=== PATIENT | female | born 1945 | race Two or more races ===

== ENCOUNTER 2017-07-20 11:21 | Day surgery (SDC) | payer MEDICARE, OTHER ==
[2017-07-17 18:24] VITALS: BMI 29.9
[2017-07-20] MEDS ORDERED: LIDOCAINE HCL/PF 2% SDV 5ML VIAL ONE (16:52)
[2017-07-20] MEDS ORDERED: PROPOFOL 20 ML ONE (16:53)
[2017-07-20] MEDS ORDERED: SUCCINYLCHOLINE CHLORIDE 200 MG/10 ML VIAL ONE (16:53)
[2017-07-20] MEDS ORDERED: CEFTRIAXONE IN IS-OSM DEXTROSE 2 GM/50 ML BAG IVPB ONE (17:00)
[2017-07-20] MEDS ORDERED: cefTRIAXone 2 GM/100 ML BAG (PRE-DOCKED) IVPB ONE (17:01)
[2017-07-20] MEDS ORDERED: DEXAMETHASONE SOD PHOSPHATE 4 MG/1 ML VIAL ONE (17:10)
[2017-07-20] MEDS ORDERED: KETOROLAC TROMETHAMINE 30 MG/1 ML VIAL ONE (17:10)
[2017-07-20] MEDS ORDERED: IOHEXOL 300 MG/ML INFUS..BTL IV ONE ×2 (17:27)
--- NOTE | 2017-07-20 17:55 | OP ---
Operative Note - Note: Operative Date: 07/20/17 Pre-Operative Diagnosis: left hydronephrosis with ureteral stone Operation: cystoscopy/left retrograde pyelogram/left ureteroscopic stone manipulation/left ureteral stent placement Findings: jaki grade proximal ureteral obstruction with 8 mm stone with pyonephrosis Post-Operative Diagnosis: Same as Pre-op (same with pyonephrosis) Surgeon: Michael David Anesthesia: General Drains & Tubes with Location: 6 fr/24 cm left ureteral stent
[2017-07-20] MEDS ORDERED: oxyCODONE HCL 5 MG TABLET PO PRN (18:00)
[2017-07-20] MEDS ORDERED: ELECTROLYTE-148 SOLN 1,000 ML IV SCH (18:00)
[2017-07-20] MEDS ORDERED: PROMETHAZINE HCL 25 MG/1 ML VIAL IVPUSH PRN (18:00)
[2017-07-20] MEDS ORDERED: ONDANSETRON 4 MG/2 ML VIAL IVPUSH PRN (18:00)
[2017-07-20 19:03] VITALS: BP 131/76; PULSE 70
[2017-07-20 19:29] VITALS: TEMP 98
--- NOTE | 2017-07-20 21:13 | OP ---
DATE OF OPERATION: 07/20/2017 PREOPERATIVE DIAGNOSIS: Left hydronephrosis with ureteral stone. POSTOPERATIVE DIAGNOSIS: Left hydronephrosis with ureteral stone, with left pyonephrosis. PROCEDURE: Cystoscopy, left retrograde pyelogram, left ureteroscopic stone manipulation, left ureteral stent placement. ATTENDING: Michael Ruelas MD ANESTHESIA: General. DESCRIPTION OF OPERATION: Patient was brought in the operating room, placed in supine position on the operating room table. General anesthesia was administered. The patient was then prepped and draped in the usual sterile manner. The patient had recent cultures that showed a urinary tract infection that was sensitive to ceftriaxone. The patient was given 2 g of ceftriaxone preoperatively. With the antibiotics given, the cystoscopy was performed. The cystoscopy showed no evidence of bladder lesions or stones. A retrograde pyelogram utilizing an open-ended catheter was performed, which showed an upper ureteral stone. A hydronephrosis was noted. A wire was passed proximally. At this point, ureteroscopy was performed, and a stone was seen just distal to the ureteropelvic junction. The stone was pushed into the kidney. Pyonephrosis was noted. A sample was taken and sent for urine culture. Because of pyonephrosis, it was decided to leave a stent in the patient. The patient had a 6-Kinyarwanda 24-cm left ureteral stent placed utilizing the Seldinger technique. No complications were noted. The patient tolerated the procedure very well. Nicolas [id number]
== END 2017-07-20 19:07 | disposition home or self-care (01) ==
LOC: JASU-SURG 11:21
PROVIDERS: ATTEND Urology
PROC: 0TC78ZZ Extirpation of Matter from Left Ureter, Via Natural or Artificial Opening Endoscopic (ICD-10-PCS; principal; 2017-07-20 12:00)
PROC: 0T778DZ Dilation of Left Ureter with Intraluminal Device, Via Natural or Artificial Opening Endoscopic (ICD-10-PCS; 2017-07-20 12:00)
DX: N13.2 Hydronephrosis with renal and ureteral calculous obstruction (principal)
CPT/HCPCS: 76000-TC-FY; 82962; 87086; 87186

== ENCOUNTER 2017-08-03 08:27 | Day surgery (SDC) | payer MEDICARE, OTHER ==
[2017-07-31 12:11] VITALS: BMI 30.7
[2017-08-03 08:49] VITALS: TEMP 98.2
[2017-08-03] MEDS ORDERED: CEFTRIAXONE 1 GM/50 ML PREMIX IVPB ONE (09:53)
--- NOTE | 2017-08-03 11:26 | OP ---
Operative Note - Note: Operative Date: 08/03/17 Pre-Operative Diagnosis: left renal stone Operation: left eswl Post-Operative Diagnosis: Same as Pre-op Surgeon: Mcihael David Anesthesia: Fractional
[2017-08-03 13:06] VITALS: BP 123/60; PULSE 68
--- NOTE | 2017-08-04 09:15 | OP ---
DATE OF OPERATION: 08/03/2017 PREOPERATIVE DIAGNOSIS: Left renal stone. POSTOPERATIVE DIAGNOSIS: Left renal stone. PROCEDURE: Left extracorporeal shock wave lithotripsy. ATTENDING: Ruthann Nick MD ANESTHESIA: Fractional. OPERATION: The patient was brought into the operating room, placed in supine position on the operating room table. Ultrasonography and fluoroscopy were performed. A 10-mm left mid-pole stone was identified. Anesthesia was administered as were preoperative antibiotics. The patient then underwent a left extracorporeal shock wave lithotripsy. A 10-mm left stone was identified. Lithotripsy was delivered with 2500 impulses at 20 joules of power. Excellent fragmentation was noted. No complications were noted. The patient tolerated the procedure very well. RUTHANN NICK M.D. /[id number]
== END 2017-08-03 13:07 | disposition home or self-care (01) ==
LOC: JASU-SURG 08:27
PROVIDERS: ATTEND Urology
PROC: 0TF4XZZ Fragmentation in Left Kidney Pelvis, External Approach (ICD-10-PCS; principal; 2017-08-03 09:30)
DX: N20.0 Calculus of kidney (principal)
CPT/HCPCS: 82962

== ENCOUNTER 2020-04-23 05:12 | Day surgery (SDC) | payer MEDICARE, OTHER ==
[2020-03-09 13:02] VITALS: BMI 30.7
[2020-04-23 17:10] VITALS: BP 160/74; PULSE 68; TEMP 97
== END 2020-04-23 17:00 | disposition home or self-care (01) ==
LOC: JASU-SURG 05:12
PROVIDERS: ATTEND Urology
PROC: 0TF4XZZ Fragmentation in Left Kidney Pelvis, External Approach (ICD-10-PCS; principal; 2020-04-23 13:30)
DX: N20.0 Calculus of kidney (principal)
CPT/HCPCS: 82962

== ENCOUNTER 2020-07-12 17:04 | Emergency (ER) | payer MEDICARE, OTHER ==
[2020-07-12 17:31] VITALS: BP 175/78; PULSE 85; TEMP 97; BMI 34.7
[2020-07-12] MEDS ORDERED: ACETAMINOPHEN 500 MG TABLET (FP) PO ONE (18:00)
[2020-07-12] MEDS ORDERED: ACETAMINOPHEN 500 MG TABLET (FP) ONE (18:05)
[2020-07-12 18:57] LABS: EPI CELLS 29 /uL (0-25.1); HYALINE CASTS 3 /uL (0-3.1); URINE APPEARANCE CLEAR; URINE BACTERIA 447 /uL (0-1359); URINE BILIRUBIN NEGATIVE (NEGATIVE); URINE COLOR YELLOW; URINE GLUCOSE (UA) TRACE (NEGATIVE); URINE KETONE TRACE (NEGATIVE); URINE LEUK ESTERASE TRACE (NEGATIVE); URINE NITRITE NEGATIVE (NEGATIVE); URINE PROTEIN 1+ (NEGATIVE); URINE RBC 18 /uL (0-23.9); URINE WBC 39 /uL (0-25.8)
== END 2020-07-12 21:30 | disposition home or self-care (01) ==
LOC: JER 17:04
DX: R10.9 Unspecified abdominal pain (principal)
CPT/HCPCS: 74176-TC; 81003; 87086; 99284-25

== ENCOUNTER 2020-07-14 12:03 | Emergency (ER) | payer MEDICARE, OTHER | END 2020-07-14 18:57 | disposition home or self-care (01) | LOC: JVIRT 12:03 | DX: U07.1 COVID-19 (principal) | CPT/HCPCS: C9803; G2251-GT; Q3014-GT; U0003 ==

== ENCOUNTER 2020-10-03 04:43 | Day surgery (SDC) | payer MEDICARE, OTHER ==
[2020-10-01 14:22] VITALS: BMI 33.8
[~2020-10-03 04:43] MED LIST: ACETAMINOPHEN 325 MG TABLET (FP) PO PRN; BSS (NA/CA/MG/K) BALANCED SALT SOLUTION OPHTH SOLN 15 ML BOTTLE OD ONE; CHONDROITIN SU A/HYALUR SOD 1 KIT IO ONE; EPINEPHrine/PF 1 MG/1 ML (1:1,000) AMPULE SQ ONE; LIDOCAINE HCL 1% PRESERVATIVE FREE - 30ML VIAL IO ONE; POVIDONE-IODINE 5% OPHTHALMIC PREP 30 ML SOLUTION OD ONE; TETRACAINE 0.5% OPHTH SOLN 2 ML BOTTLE OD ONE
[2020-10-03] MEDS ORDERED: EPINEPHrine/PF 1 MG/1 ML (1:1,000) AMPULE ONE (07:12)
[2020-10-03] MEDS ORDERED: LIDOCAINE HCL/PF 1% SDV 5ML VIAL ONE (07:12)
[2020-10-03] MEDS ORDERED: POVIDONE-IODINE 5% OPHTHALMIC PREP 30 ML SOLUTION ONE (07:12)
[2020-10-03] MEDS ORDERED: TETRACAINE 0.5% OPHTH SOLN 2 ML BOTTLE ONE (07:12)
[2020-10-03] MEDS ORDERED: CHONDROITIN SU A/HYALUR SOD 1 KIT ONE (07:12)
[2020-10-03] MEDS ORDERED: TRYPAN BLUE 0.5 ML DISP.SYRIN ONE (07:13)
[2020-10-03] MEDS ORDERED: TROPICAMIDE 1% OPHTH SOLN 15 ML BOTTLE ONE (07:17)
[2020-10-03] MEDS ORDERED: CYCLOPENTOLATE HCL 1% OPHTH SOLN 2 ML BOTTLE ONE (07:18)
[2020-10-03] MEDS ORDERED: OFLOXACIN 0.3% OPHTHALMIC SOLUTION 5 ML BOTTLE ONE (07:18)
[2020-10-03] MEDS ORDERED: KETOROLAC TROMETHAMINE 0.5% EYE DROP 1 DROP DROPS ONE (07:18)
[2020-10-03] MEDS: PHENYLEPHRINE 2.5% OPHTH SOLN 15 ML BOTTLE OP SCH ×3 (07:55→08:05)
[2020-10-03] MEDS: TROPICAMIDE 1% OPHTH SOLN 15 ML BOTTLE OP SCH ×3 (07:55→08:05)
[2020-10-03] MEDS: CYCLOPENTOLATE HCL 1% OPHTH SOLN 2 ML BOTTLE OP SCH ×3 (07:55→08:05)
[2020-10-03] MEDS: KETOROLAC TROMETHAMINE 0.5% EYE DROP 1 DROP DROPS OP SCH ×3 (07:55→08:05)
[2020-10-03] MEDS: OFLOXACIN 0.3% OPHTHALMIC SOLUTION 5 ML BOTTLE OP SCH ×3 (07:55→08:05)
[2020-10-03] MEDS ORDERED: TETRACAINE 0.5% OPHTH SOLN 2 ML BOTTLE TP ONE (09:25)
[2020-10-03] MEDS ORDERED: POVIDONE-IODINE 5% OPHTHALMIC PREP 30 ML SOLUTION OD ONE (09:27)
[2020-10-03] MEDS ORDERED: BSS (NA/CA/MG/K) BALANCED SALT SOLUTION OPHTH SOLN 15 ML BOTTLE OD ONE (09:32)
[2020-10-03] MEDS ORDERED: CHONDROITIN SU A/HYALUR SOD 1 KIT IO ONE (09:33)
[2020-10-03] MEDS ORDERED: LIDOCAINE HCL 1% PRESERVATIVE FREE - 30ML VIAL IO ONE (09:33)
[2020-10-03] MEDS ORDERED: EPINEPHrine/PF 1 MG/1 ML (1:1,000) AMPULE SQ ONE (09:40)
[2020-10-03 12:58] VITALS: BP 153/68; PULSE 71; TEMP 97.7
== END 2020-10-03 10:55 | disposition home or self-care (01) ==
LOC: JASU-SURG 04:43
PROVIDERS: ATTEND Ophthalmology
PROC: 08RJ3JZ Replacement of Right Lens with Synthetic Substitute, Percutaneous Approach (ICD-10-PCS; principal; 2020-10-03 09:00)
DX: H26.9 Unspecified cataract (principal)
CPT/HCPCS: 82962

== ENCOUNTER 2020-10-17 04:29 | Day surgery (SDC) | payer MEDICARE, OTHER ==
[2020-10-15 09:54] VITALS: BMI 33.8
[~2020-10-17 04:29] MED LIST changes: -BSS (NA/CA/MG/K) BALANCED SALT SOLUTION OPHTH SOLN 15 ML BOTTLE OD ONE; -CHONDROITIN SU A/HYALUR SOD 1 KIT IO ONE; -LIDOCAINE HCL 1% PRESERVATIVE FREE - 30ML VIAL IO ONE; -POVIDONE-IODINE 5% OPHTHALMIC PREP 30 ML SOLUTION OD ONE; -TETRACAINE 0.5% OPHTH SOLN 2 ML BOTTLE OD ONE
[2020-10-17] MEDS ORDERED: OFLOXACIN 0.3% OPHTHALMIC SOLUTION 5 ML BOTTLE ONE (07:11)
[2020-10-17] MEDS ORDERED: TROPICAMIDE 1% OPHTH SOLN 15 ML BOTTLE ONE (07:11)
[2020-10-17] MEDS ORDERED: CYCLOPENTOLATE HCL 1% OPHTH SOLN 2 ML BOTTLE ONE (07:11)
[2020-10-17] MEDS ORDERED: KETOROLAC TROMETHAMINE 0.5% EYE DROP 1 DROP DROPS ONE (07:11)
[2020-10-17] MEDS: TROPICAMIDE 1% OPHTH SOLN 15 ML BOTTLE OP SCH ×3 (08:10→08:20)
[2020-10-17] MEDS: CYCLOPENTOLATE HCL 1% OPHTH SOLN 2 ML BOTTLE OP SCH ×3 (08:10→08:20)
[2020-10-17] MEDS: KETOROLAC TROMETHAMINE 0.5% EYE DROP 1 DROP DROPS OP SCH ×3 (08:10→08:20)
[2020-10-17] MEDS: OFLOXACIN 0.3% OPHTHALMIC SOLUTION 5 ML BOTTLE OP SCH ×3 (08:10→08:20)
[2020-10-17] MEDS: PHENYLEPHRINE 2.5% OPHTH SOLN 15 ML BOTTLE OP SCH ×3 (08:10→08:20)
[2020-10-17] MEDS ORDERED: POVIDONE-IODINE 5% OPHTHALMIC PREP 30 ML SOLUTION OS ONE (09:00)
[2020-10-17] MEDS ORDERED: BSS (NA/CA/MG/K) BALANCED SALT SOLUTION OPHTH SOLN 15 ML BOTTLE OS ONE (09:04)
[2020-10-17] MEDS ORDERED: LIDOCAINE HCL 1% PRESERVATIVE FREE - 30ML VIAL IO ONE (09:05)
[2020-10-17] MEDS ORDERED: CHONDROITIN SU A/HYALUR SOD 1 KIT IO ONE (09:09)
[2020-10-17] MEDS ORDERED: EPINEPHrine/PF 1 MG/1 ML (1:1,000) AMPULE SQ ONE (09:12)
[2020-10-17] MEDS ORDERED: PROPOFOL 20 ML ONE (09:54)
[2020-10-17] MEDS ORDERED: LIDOCAINE HCL/PF 2% SDV 5ML VIAL ONE (09:56)
[2020-10-17 10:26] VITALS: BP 172/63; PULSE 73; TEMP 97.5
== END 2020-10-17 10:27 | disposition home or self-care (01) ==
LOC: JASU-SURG 04:29
PROVIDERS: ATTEND Ophthalmology
PROC: 08RK3JZ Replacement of Left Lens with Synthetic Substitute, Percutaneous Approach (ICD-10-PCS; principal; 2020-10-17 09:00)
DX: H26.9 Unspecified cataract (principal)
CPT/HCPCS: 82962

== ENCOUNTER 2020-11-19 04:23 | Day surgery (SDC) | payer MEDICARE, OTHER ==
[2020-11-16 08:36] VITALS: BMI 32.9
[2020-11-19] MEDS ORDERED: PROPOFOL 20 ML ONE (07:55)
[2020-11-19] MEDS ORDERED: SUCCINYLCHOLINE CHLORIDE 200 MG/10 ML SYRINGE ONE (07:56)
[2020-11-19] MEDS ORDERED: MIDAZOLAM HCL 2 MG/2 ML SINGLE DOSE VIAL ONE (07:56)
[2020-11-19] MEDS ORDERED: ACETAMINOPHEN 325 MG TABLET (FP) PO PRN (08:40)
[2020-11-19] MEDS ORDERED: oxyCODONE HCL 5 MG TABLET PO PRN (08:40)
[2020-11-19] MEDS ORDERED: ONDANSETRON 4 MG/2 ML VIAL IVPUSH PRN (08:40)
[2020-11-19] MEDS ORDERED: LACTATED RINGERS SOLUTION 1,000 ML IV SCH (08:45)
[2020-11-19 08:50] VITALS: TEMP 97.7
[2020-11-19 10:38] VITALS: BP 141/58; PULSE 71
== END 2020-11-19 10:30 | disposition home or self-care (01) ==
LOC: JASU-SURG 04:23
PROVIDERS: ATTEND Urology
PROC: 0TF3XZZ Fragmentation in Right Kidney Pelvis, External Approach (ICD-10-PCS; principal; 2020-11-19 08:00)
DX: N20.0 Calculus of kidney (principal)

== ENCOUNTER 2021-09-23 04:20 | Day surgery (SDC) | payer MEDICARE, OTHER ==
[2021-09-18 17:08] VITALS: BMI 32.9
[2021-09-23] MEDS ORDERED: ONDANSETRON 4 MG/2 ML VIAL ONE ×2 (08:09→08:56)
[2021-09-23] MEDS ORDERED: MIDAZOLAM HCL 2 MG/2 ML SINGLE DOSE VIAL ONE (08:42)
[2021-09-23 12:29] VITALS: BP 143/54; PULSE 68; TEMP 98
== END 2021-09-23 11:20 | disposition home or self-care (01) ==
LOC: JASU-SURG 04:20
PROVIDERS: ATTEND Urology
PROC: 0TF3XZZ Fragmentation in Right Kidney Pelvis, External Approach (ICD-10-PCS; principal; 2021-09-23 08:30)
DX: N20.0 Calculus of kidney (principal)
CPT/HCPCS: 82962

== ENCOUNTER 2024-05-02 04:20 | Day surgery (SDC) | payer OTHER ==
[2024-04-29 14:58] VITALS: BMI 30.7
[2024-05-02 10:39] VITALS: RESP 20
[2024-05-02] MEDS ORDERED: PROPOFOL 20 ML ONE (11:54)
[2024-05-02] MEDS ORDERED: MIDAZOLAM HCL 2 MG/2 ML SINGLE DOSE VIAL ONE (11:54)
[2024-05-02] MEDS ORDERED: ONDANSETRON 4 MG/2 ML VIAL ONE (11:54)
[2024-05-02 16:10] VITALS: BP 142/76; PULSE 76; TEMP 97.5
== END 2024-05-02 13:35 | disposition home or self-care (01) ==
LOC: JASU-SURG 04:20
PROVIDERS: ATTEND Urology
PROC: 0TF7XZZ Fragmentation in Left Ureter, External Approach (ICD-10-PCS; principal; 2024-05-02 12:00)
DX: N20.0 Calculus of kidney (principal)